=== PATIENT | male | born 2000 | race Caucasian/White ===

== ENCOUNTER 2018-02-02 20:41 | Emergency (ER) | payer OTHER ==
[~2018-02-02] VITALS: Ht 172.7 cm; Wt 79.4 kg
[2018-02-02 20:44] VITALS: BP 139/82
--- NOTE | 2018-02-02 20:47 | NUR ---
PT AMBULATED TO BED 3 WITH STEADY GAIT
--- NOTE | 2018-02-02 20:56 | NUR ---
PT PRESENTS TO ED WITH C/O L EAR PAIN X 1 DAY. DENIES INJURY OR TRAUMA. NO HEARING LOSS TO LEFT EAR REPORTED. PT REPORTS FEELING WAX BUILD UP. PT PLACED INTO BED, PENDING MD SUAREZ.
[2018-02-02] MEDS ORDERED: ONDANSETRON 4 MG ODT PO ONE (21:30)
[2018-02-02 21:49] VITALS: BP 139/82
--- NOTE | 2018-02-02 21:49 | NUR ---
Patient discharged with v/s stable. Written and verbal after care instructions given and explained. Patient alert, oriented and verbalized understanding of instructions. Ambulatory with steady gait. All questions addressed prior to discharge. ID band removed. Patient advised to follow up with PMD. Rx of DEBROX, IBUPROFEN, ZOFRAN given. Patient educated on indication of medication including possible reaction and side effects. Opportunity to ask questions provided and answered.
== END 2018-02-02 21:49 | disposition home or self-care (01) ==
LOC: MED 20:41
DX: H61.22 Impacted cerumen, left ear (principal)
CPT/HCPCS: 69209; 99283; Q0162